=== PATIENT | female | born 1995 | race Caucasian/White ===

== ENCOUNTER 2016-06-06 04:24 | Inpatient (IN) | payer OTHER ==
[~2016-06-06] VITALS: Ht 165.1 cm; Wt 88.9 kg
[~2016-06-06 04:24] MED LIST: COLACE 100MG C100 MG PO
[2016-06-06 05:24] LABS: HEMOGLOBIN 11.7 gm/dl (12.3-15.3); RED BLOOD COUNT 4.17 M/UL (4.00-5.10); WHITE BLOOD COUNT 13.6 K/UL (4.5-11.0)
[2016-06-07 03:14] LABS: HEMOGLOBIN 10.5 gm/dl (12.3-15.3)
[2016-06-07] MEDS ORDERED: NORCO 5-325 TA1 EACH PO (10:26)
== END 2016-06-07 13:55 | disposition home or self-care (01) | DRG 775 ==
LOC: GENOP 04:24 → OB 05:06
PROVIDERS: Obstetrics & Gynecology; ADMIT Obstetrics & Gynecology
PROC: 0KQM0ZZ Repair Perineum Muscle, Open Approach (ICD-10-PCS; principal; 2016-06-06)
PROC: 10907ZC Drainage of Amniotic Fluid, Therapeutic from Products of Conception, Via Natural or Artificial Opening (ICD-10-PCS; principal; 2016-06-06)
PROC: 10E0XZZ Delivery of Products of Conception, External Approach (ICD-10-PCS; principal; 2016-06-06)
DX: O36.0930 Maternal care for other rhesus isoimmunization, third trimester, not applicable or unspecified (principal); O70.1 Second degree perineal laceration during delivery; Z37.0 Single live birth; Z3A.40 40 weeks gestation of pregnancy; Z88.1 Allergy status to other antibiotic agents; Z28.21 Immunization not carried out because of patient refusal; Z83.3 Family history of diabetes mellitus
CPT/HCPCS: 36415; 51702; 81001; 82800; 85014; 85018; 85025; 85461; 86900; 86901; J2590; J2795; J3010; J7120